=== PATIENT | female | born 1985 | race Caucasian/White ===

== ENCOUNTER 2021-01-20 12:06 | Emergency (ER) | payer OTHER ==
[~2021-01-20] VITALS: Ht 162.6 cm; Wt 130.0 kg
[2021-01-20 12:16] VITALS: BP 114/57
== END 2021-01-20 14:11 | disposition home or self-care (01) ==
LOC: EMS 12:06
DX: K64.4 Residual hemorrhoidal skin tags (principal)
CPT/HCPCS: 99281; 99282; Z7502